=== PATIENT | female | born 1990 | race African-American/Black ===

== ENCOUNTER 2020-11-06 03:31 | Emergency (ER) | payer OTHER ==
[~2020-11-06] VITALS: Ht 167.6 cm; Wt 81.7 kg
--- NOTE | ~2020-11-06 | EMS ---
[address] [address] EMS Patient Care Report Name: ANABEL SWENSON Room #: REG OZIEL Martel#: [id number] Admission: 11/06/20 Attend Phys: Discharge: Date of : [birth year] Report #: [id number] THIS REPORT FOR: //name// Report Transmitted: 11/06/2020 04:57 EMS Care Summary [facility] MED-ACT Incident [id number] @ 11/06/2020 02:49 Incident Location [address] [place] [address] Patient ANABEL SWENSON Female, 30 Years 1990 Patient Address [address] [place] [address] Patient History Substance Abuse,Depression,Anxiety,Post Traumatic Stress Disorder (PTSD), Patient Allergies No known allergies, Patient Medications Adderall, Lexapro, Chief Complaint Overdose Disposition Transported No Lights/[place] Dis[place] Reason Unconscious/Fainting Transported To [facility] Narrative Upon arrival pt. was in left lateral recumbent on the floor in the back of the residence dressed in a pair of shorts and a t shirt. Pt. was unresponsive and had snoring respirations and a slow irregular rate. PD, who had arrived on scene shortly before EMS, stated they found pt. on her back and rolled her into [address] [address] EMS Patient Care Report Name: ANABEL SWENSON Room #: REG OZIEL Martel#: [id number] Admission: 11/06/20 Attend Phys: Discharge: Date of : [birth year] Report #: [id number] recovery position. Pt.s father stated that pt. had a hx of drug abuse. Pt. was ventilated with a BVM and NPA was placed to keep airway open. Following administration of Naloxone pt. LOC improved and pt. was able to answer history questions. Pt. stated that she had smoked opium, meth, crack and snorted some oxycodone. Pt. complained of a headache and nausea. Pt. agreed to transport and biocmo was given en route. [facility] EMT drove and Lt Crispin and PM Destiny provided pt. care en route. Pt, was sheet lifted to bed without incident. Report given to MD and RN. Initial Vitals @03:00P: 84,SpO2: 75, @03:01P: 78,R: 12,SpO2: 68,TN Suspected: false @03:18P: 108,Pain: 2/10,GCS: 15,SpO2: 100,TN Suspected: false @03:08P: 105,R: 26,BP: 135/88,GCS: 15,SpO2: 100,Revised Trauma: 12, @02:57P: 108,R: 8,BP: 107/52,Pain: 0/10,GCS: 3,Temp: 97.5F,Glucose: 217,SpO2: 48,Revised Trauma: 6, @03:05P: 82,R: 11,GCS: 3,EtCO2: 61,SpO2: 100, @03:27P: 98,R: 28,BP: 156/71,GCS: 15,SpO2: 98,Revised Trauma: 12, Assessments @02:57MENTAL:Unresponsive,SKIN:HEENT:Eyes: Right: Constricted,Eyes: Left: Constricted,Eyes: Left: Non-Reactive,Eyes: Left Pupil: 2-mm,Eyes: Right: Non-Reactive,Neck/Airway: Obstructed,Eyes: Right Pupil: 2-mm,Head/Face: No Abnormalities,LUNG SOUNDS:General: No Abnormalities,ABDOMEN:General: No Abnormalities,PELVIS//GI:No Abnormalities,EXTREMITIES:Left Arm: No Abnormalities,Right Arm: No Abnormalities,Left Leg: No Abnormalities,Right Leg: No Abnormalities,PULSE:Radial: 2+ Normal,NEURO:No Abnormalities,@03:15MENTAL:No Abnormalities,SKIN:HEENT:Eyes: Left Pupil: 6-mm,Eyes: Right Pupil: 6-mm,LUNG SOUNDS:General: No Abnormalities,Left Upper: No Abnormalities,Right Upper: No Abnormalities,Left Lower: No Abnormalities,Right Lower: No Abnormalities,ABDOMEN:General: No Abnormalities,Left Upper: No Abnormalities,Right Upper: No Abnormalities,Left Lower: No Abnormalities,Right Lower: No Abnormalities,PELVIS//GI:No Abnormalities,EXTREMITIES:Left Arm: No Abnormalities,Right Arm: No Abnormalities,Left Leg: No Abnormalities,Right Leg: No Abnormalities,PULSE:NEURO:No Abnormalities, Impression Overdose - Synthetic narcotics Procedures @03:1812-Lead ECGResponse: UnchangedSucceeded@03:01Saline Lock 0cc (20 ga) Site: Antecubital-LeftResponse: UnchangedFailed@02:57ALS AssessmentResponse: UnchangedSucceeded@02:57Manual Airway Response: Improved@02:59Oxygen FlowRate: 25 Device: Bag Valve Mask (BVM) Response: ImprovedSucceeded@03:01NPA Response: ImprovedSucceeded@03:05Naloxone - 1 Milligrams (mg) - Intravenous (IV)Response: Improved@03:03Saline Lock 10cc (20 ga) Site: [address] [address] EMS Patient Care Report Name: ANABEL SWENSON Room #: REG OZIEL Martel#: [id number] Admission: 11/06/20 Attend Phys: Discharge: Date of : 89 Report #: [id number] Antecubital-RightResponse: UnchangedSucceeded@03:10StretcherResponse: Unchanged@03:21Ondansetron - 4 Milligrams (mg) - Intravenous (IV)Response: Improved@03:15Surgical Mask on PatientResponse: Unchanged Timeline 02:48,Call Received 02:48,Psap Call 02:49,Dispatched 02:50,En Route 02:55,On Scene 02:56,At Patient 02:57,ALS Assessment,Response: UnchangedSucceeded, 02:57,Manual Airway Response: Improved 02:57,BP: 107/52 M,PULSE: 108,RR: 8 R,SPO2: 48 Ox,ETCO2: ,B,PAIN: 0,GCS: 3, 02:59,Oxygen FlowRate: 25 Device: Bag Valve Mask (BVM) Response: ImprovedSucceeded, 03:00,BP: / M,PULSE: 84,RR: R,SPO2: 75 Ox,ETCO2: ,BG: ,PAIN: ,GCS: , 03:01,NPA Response: ImprovedSucceeded, 03:01,BP: / M,PULSE: 78,RR: 12 R,SPO2: 68 Ox,ETCO2: ,BG: ,PAIN: ,GCS: , 03:01,Saline Lock 0cc 20 ga Site: Antecubital-Left,Response: UnchangedFailed, 03:03,Saline Lock 10cc 20 ga Site: Antecubital-Right,Response: UnchangedSucceeded, 03:05,Naloxone - 1 Milligrams (mg) - Intravenous (IV),Response: Improved 03:05,BP: / M,PULSE: 82,RR: 11 R,SPO2: 100 Ox,ETCO2: 61 ,BG: ,PAIN: ,GCS: 3, 03:08,BP: 135/88 M,PULSE: 105,RR: 26 R,SPO2: 100 Ox,ETCO2: ,BG: ,PAIN: ,GCS: 15, 03:10,Stretcher,Response: Unchanged 03:15,Surgical Mask on Patient,Response: Unchanged 03:15,Depart Scene 03:18,12-Lead ECG,Response: UnchangedSucceeded, 03:18,BP: / M,PULSE: 108,RR: R,SPO2: 100 Ox,ETCO2: ,BG: ,PAIN: 2,GCS: 15, 03:21,Ondansetron - 4 Milligrams (mg) - Intravenous (IV),Response: Improved 03:27,BP: 156/71 M,PULSE: 98,RR: 28 R,SPO2: 98 Ox,ETCO2: ,BG: ,PAIN: ,GCS: 15, 03:27,At Destination 03:58,Call Closed Disclaimer [email or web address] Copyright 2020 [employer] This EMS Care Summary contains data elements from the applicable legal record (which may be displayed differently). It is designed to provide pertinent information for the following purposes: continuity of care, clinical quality, and state data reporting. The complete legal record is available to ED staff and administrators of the receiving hospital in [email or web address]'s Patient Tracker. All data is provided "as is."
[2020-11-06] MEDS ORDERED: LEXAPRO 10 MG T10 M2 PO (03:49)
[2020-11-06] MEDS ORDERED: ADDERALL 30 MG30 MG PO (03:50)
[2020-11-06 04:18] LABS: ABSOLUTE NEUTROPHILS 2.6 thou/uL (1.4-8.2); BASOPHILS 0.3 % (0.0-2.0); EOSINOPHILS 2.8 % (0.0-3.0); HEMATOCRIT 35.9 % (37.0-47.0); LYMPHOCYTES 44.6 % (24.0-44.0); MCH 29.9 pg (26.0-34.0); MCHC 33.5 g/dL (28.0-37.0); MCV 89.2 fL (80.0-100.0); MONOCYTES 5.6 % (1.0-8.0); PLATELET COUNT 210 thou/uL (150-400); POLYS 46.7 % (36.0-66.0); RBC 4.02 mil/uL (4.20-5.00); RDW 12.6 % (10.5-14.5); WBC 5.5 thou/uL (4.0-11.0)
[2020-11-06 04:21] LABS: CALCIUM 8.6 mg/dL (8.5-10.1); CREATININE 1.2 mg/dL (0.6-1.0); POTASSIUM 3.6 mmol/L (3.5-5.1)
[2020-11-06 04:26] LABS: ALBUMIN 4.1 g/dL (3.4-5.0); SALICYLATE 3.2 mg/dL (2.8-20.0); TOTAL BILIRUBIN 0.5 mg/dL (0.2-1.0); TOTAL PROTEIN 7.7 g/dL (6.4-8.2)
[2020-11-06 05:27] LABS: URINE BILIRUBIN NEGATIVE (Negative); URINE BLOOD NEGATIVE (Negative); URINE CLARITY CLEAR; URINE COLOR YELLOW; URINE GLUCOSE-RANDOM* 1+ (Negative); URINE KETONES NEGATIVE (Negative); URINE LEUKOCYTES-REFLEX NEGATIVE (Negative); URINE NITRITE-REFLEX NEGATIVE (Negative); URINE PROTEIN (DIPSTICK) TRACE (Negative); URINE SPECIFIC GRAVITY >= 1.030 (1.005-1.035); URINE UROBILINOGEN 0.2 E.U./dl (0.2-1.0)
[2020-11-06 05:36] LABS: AMP/METHAMP POSITIVE (Negative); BARBITURATES Negative (Negative); BENZODIAZEPINES Negative (Negative); COCAINE POSITIVE (Negative); METHADONE Negative (Negative); OPIATES POSITIVE (Negative); PCP POSITIVE (Negative)
--- NOTE | 2020-11-06 07:07 | EKG ---
[address] [address] ELECTROCARDIOGRAM REPORT Name: ANABEL SWENSON [id number] Admission: 11/06/20 Attend Phys: Discharge: Date of : 89 Report #: [id number] [facility] ED Test Date: 2020-11-06 Test Time: 03:36:48 Pat Name: ANABEL SWENSON Department: Room: Gender: F Outsole Rounder: MPARAayush : 1990 Requested By: Brian Perez Order Number: [id number] MD: Hector Dockery Measurements Intervals [facility] Rate: 91 P: 41 OK: 184 QRS: 62 QRSD: 84 T: 40 QT: 377 QTc: 464 Interpretive Statements Sinus rhythm No previous ECG available for comparison Electronically Signed On 11-06-2020 7:07:23 CDT by Hector Dockery [email or web address] <ELECTRONICALLY SIGNED> By: Hector Dockery MD, [facility] 11/06/20 [phone] Hector Dockery MD, FACC /EPI
[2020-11-06 09:00] VITALS: BP 97/50
== END 2020-11-06 09:03 | disposition still patient (30) ==
LOC: ER 03:31
PROVIDERS: Emergency Medicine
DX: T40.2X1A Poisoning by other opioids, accidental (unintentional), initial encounter (principal); R41.82 Altered mental status, unspecified; F15.10 Other stimulant abuse, uncomplicated; F11.10 Opioid abuse, uncomplicated; Z79.899 Other long term (current) drug therapy; Y92.89 Other specified places as the place of occurrence of the external cause